=== PATIENT | male | born 1990 | race Caucasian/White ===

== ENCOUNTER 2020-12-13 13:06 | Emergency (ER) | payer OTHER, SELFPAY ==
--- NOTE | ~2020-12-13 | XR_ITS ---
EXAMINATION: XR chest 1V portable EXAM DATE: 12/13/2020 14:55 INDICATION: Cough, congestion x 5 days, hx of COPD, smoker. TECHNIQUE: Portable AP frontal chest x-ray was obtained. There is no prior study for comparison. FINDINGS: The lungs are clear. There are no pleural effusions. Cardiac silhouette is prominent but magnified on this AP technique. There is no pneumothorax suspected. The bones and soft tissues are unremarkable. IMPRESSION: No acute cardiopulmonary findings. Reviewed, dictated and finalized at location B.
[2020-12-13 13:14] VITALS: BP 136/102; PULSE 100; RESP 20; TEMP 36.4; O2SAT 97
--- NOTE | 2020-12-13 14:46 | ED.URI ---
HPI - URI/Sore Throat General Chief Complaint: Upper Respiratory Infection Stated Complaint: COUGH/COLD S/SX Time Seen by Provider: 12/13/20 14:35 Source: patient History of Present Illness HPI Narrative: Patient presents with cough, congestion mild shortness of breath. Ports he had symptoms for the past few days getting progressively worse. Instructed to be evaluated by his work as well as his friends. He denies productive cough denies chest pain denies fevers denies any lightheadedness nausea vomiting Related Data Allergies Allergy/AdvReac Type Severity Reaction Status Date / Time No Known Allergies Allergy Verified 12/13/20 13:16 Review of Systems Review of Systems: CONSTITUTIONAL: Denies fever, chills, or sweats. EYES: Denies visual changes, redness, or discharge. ENT: Denies rhinorrhea, congestion, sore throat, or otalgia. CARDIOVASCULAR: Denies chest pain, palpitations, or edema. RESPIRATORY: Reports shortness of breath and cough GASTROINTESTINAL: Denies abdominal pain, nausea, vomiting, or diarrhea. GENITOURINARY: Denies dysuria or hematuria. SKIN: Denies rash or itching. MUSCULOSKELETAL: Denies back pain, joint pain, or myalgia. NEUROLOGIC: Denies headache, numbness, dizziness, or weakness. PSYCHIATRIC: Denies anxiety or depression. All systems reviewed & are unremarkable except as noted in HPI and below PMFSH Social History Social History (Updated 12/13/20 @ 14:52 by Blaine Bradshaw MD) Smoking status: Current every day smoker Exam Narrative: GENERAL: Well-appearing, well-nourished, and in no acute distress. HEAD: Normocephalic, atraumatic. EYES: PERRLA and EOMI. ENT: Nares clear, no rhinorrhea or epistaxis. Mucous membranes moist. NECK: Supple. No masses. No JVD CHEST: Clear to auscultation. No respiratory distress. No wheezes rales or rhonchi HEART: Regular rate and rhythm. No murmur heard. Normal peripheral pulses. ABDOMEN: Soft, nontender, nondistended, normal active bowel sounds. EXTREMITIES: Normal range of motion. No edema. SKIN: Warm, dry, no rash. NEURO: No focal deficits. Alert and oriented x3. PSYCH: Normal mood and affect. Course Reevaluation(s) Reevaluation #1: Patient resting comfortably results reviewed with patient. Patient comfortable with outpatient plan. Date: 12/13/20 Time: 15:11 Vital Signs Vital signs: Vital Signs Temperature 36.4 C 12/13/20 13:14 Pulse Rate 100 12/13/20 13:14 Respiratory Rate 20 12/13/20 13:14 Blood Pressure 136/102 H 12/13/20 13:14 Pulse Oximetry 97 12/13/20 13:14 Temperature 36.4 C 12/13/20 13:14 Pulse Rate 97 12/13/20 15:26 Respiratory Rate 12 12/13/20 15:26 Blood Pressure 130/83 12/13/20 15:26 Pulse Oximetry 98 12/13/20 15:27 MDM - URI/Sore Throat MDM Narrative Medical decision making narrative: H&P as above, vss, pt looks clinically well, exam reassuring, imaging clinically unremarkable, additional labs/img considered, symptomatic relief available as needed, on reevaluation pt continues to looks clinically well. Suspect viral process possible bronchitis, dns pneumonia, severe sepsis, severe dehydration. plan to tx/monitor as op w/ pcm f/u findings/plan discussed with pt, pt agree/comfortable with plan, return precautions given Lab Data Labs: Lab Results 12/13/20 Range/Units 15:45 SARS-CoV-2 RNA (RT-PCR) Pending Imaging Data Radiologist's impression: Impressions Chest X-Ray 12/13/20 15:03 IMPRESSION: No acute cardiopulmonary findings. Discharge Plan Discharge Clinical Impression: Cough, Shortness of breath, Chest congestion Patient Disposition: Home, Self-Care Condition: Improved Instructions: Antibiotic Form, Acute Bronchitis (ED) Additional Instructions: Please return if your symptoms worsen or fail to improve. If you develop a fever, can not eat/drink anything or if you have any other concerns. Prescriptions: New albuterol sulfate 90 mcg/actua
[2020-12-13 15:26] VITALS: BP 130/83; PULSE 97; RESP 12; O2SAT 98
[2020-12-13 15:27] VITALS: O2SAT 98
[2020-12-14 17:03] LABS: SARS-CoV-2 RNA PCR Negative
== END 2020-12-13 15:48 | disposition home or self-care (01) ==
PROVIDERS: Emergency Provider Emergency Medicine; PCP Family Medicine
DX: R05.9 Cough, unspecified (principal); R06.02 Shortness of breath; R09.89 Other specified symptoms and signs involving the circulatory and respiratory systems; Z20.822 Contact with and (suspected) exposure to COVID-19; F17.200 Nicotine dependence, unspecified, uncomplicated
CPT/HCPCS: 71045; 99283; C9803; U0003; U0005

== ENCOUNTER 2022-07-30 14:03 | Emergency (ER) | payer OTHER, SELFPAY ==
--- NOTE | ~2022-07-30 | XR_ITS ---
EXAMINATION: XR ankle RT min 3V DATE: 07/30/2022 14:28 INDICATION: Right ankle injury and pain. TECHNIQUE: 4 views of right ankle were obtained. COMPARISON: None. FINDINGS: Bone alignment is normal. No fracture. There is mild osteoarthritis of talonavicular joint. There is an enthesophyte at plantar aspect of calcaneal tuberosity. Ankle soft tissue swelling is no samm. IMPRESSION: 1. No fracture. Reviewed, dictated and finalized at location A. IMPRESSION: 1. No fracture.
--- NOTE | ~2022-07-30 | XR_ITS ---
EXAMINATION: XR foot RT min 3V DATE: 07/30/2022 15:23 INDICATION: Right foot injury and pain. TECHNIQUE: 3 views of right foot were obtained. COMPARISON: None. FINDINGS: Bone alignment is normal. No fracture. There is mild osteoarthritis of first metatarsophala ngeal joint and talonavicular joint. There is an enthesophyte at plantar aspect of calcaneal tuberosi ty. IMPRESSION: 1. Mild polyarticular osteoarthritis. Reviewed, dictated and finalized at location A.
[2022-07-30 14:05] VITALS: BP 163/86; PULSE 91; RESP 20; TEMP 36.9; O2SAT 97
--- NOTE | 2022-07-30 15:14 | ED.GENADULT ---
HPI - General Adult General Chief complaint: Extremity Injury, Lower Stated complaint: right ankle injury Time Seen by Provider: 07/30/22 14:18 Source: patient Mode of arrival: wheelchair Limitations: no limitations History of Present Illness HPI narrative: This is a 32-year-old male who presents to the ED with chief complaint of a right ankle injury occurring 1 day prior to arrival. Patient states that he was playing ball with his kids in the backyard. He was backing up to catch a ball when his foot went into a hole. He feels like the ankle rolled when he did this. Reports immediate pain and problems with bearing weight. Denies any numbness or weakness. Related Data Allergies Allergy/AdvReac Type Severity Reaction Status Date / Time No Known Allergies Allergy Verified 07/30/22 14:04 Review of Systems Review of Systems: CONSTITUTIONAL: Denies fever, chills, or sweats. EYES: Denies visual changes, redness, or discharge. ENT: Denies rhinorrhea, congestion, sore throat, or otalgia. CARDIOVASCULAR: Denies chest pain, palpitations, or edema. RESPIRATORY: Denies cough or dyspnea. GASTROINTESTINAL: Denies abdominal pain, nausea, vomiting, or diarrhea. GENITOURINARY: Denies dysuria or hematuria. SKIN: Denies rash or itching. MUSCULOSKELETAL: See HPI NEUROLOGIC: Denies headache, numbness, dizziness, or weakness. PSYCHIATRIC: Denies anxiety or depression. [facility] Social History Social History (Updated 12/13/20 @ 14:52 by Blaine Bradshaw, ) Smoking status: Current every day smoker Exam Narrative: GENERAL: Well-appearing, well-nourished, and in no acute distress. Presents in wheelchair. HEAD: Normocephalic, atraumatic. EYES: PERRLA and EOMI. ENT: Nares clear, no rhinorrhea or epistaxis. Mucous membranes moist. Oropharynx without tonsillar hypertrophy exudate or other lesions. NECK: Supple. No adenopathy or masses. CHEST: No respiratory distress. Clear to auscultation. No wheezes rales or rhonchi HEART: Regular rate and rhythm. No murmur heard. Normal peripheral pulses. ABDOMEN: Soft, nontender, nondistended, normal active bowel sounds. MSK: Effusion to the right ankle. Mild effusion to the right foot. Marked tenderness to the lateral right ankle and minimal on the medial side of the ankle. There is some point tenderness to the lateral MTP joints on the right foot as well. No bruising or deformity. Neurovascularly intact distally. SKIN: Warm, dry, no rash. NEURO: Alert and oriented x3. No focal deficits. PSYCH: Normal mood and affect. Course Vital Signs Vital signs: Vital Signs Temperature 98.4 F 07/30/22 14:05 Pulse Rate 91 07/30/22 14:05 Respiratory Rate 20 07/30/22 14:05 Blood Pressure 163/86 H 07/30/22 14:05 Pulse Oximetry 97 07/30/22 14:05 Oxygen Delivery Room Air 07/30/22 14:05 Temperature 98.4 F 07/30/22 14:05 Pulse Rate 91 07/30/22 14:05 Respiratory Rate 20 07/30/22 14:05 Blood Pressure 163/86 H 07/30/22 14:05 Pulse Oximetry 97 07/30/22 14:05 Oxygen Delivery Room Air 07/30/22 14:05 Medical Decision Making MDM Narrative Medical decision making narrative: This is a 32-year-old male who presents to the ED with chief complaint of a right lower extremity injury occurring yesterday. Pain in the right ankle and right foot. Vitals are stable. Exam shows swelling to the right ankle and tenderness to the lateral right ankle and lateral right foot. X-rays are negative for any acute fractures or dislocation throughout the ankle or foot. Symptoms are consistent with ankle sprain. He will be given Ike wrap for compression and crutches. He is to remain weightbearing as tolerated. We discussed supportive measures for home. Return precautions given. Patient is understanding and agreeable with plan for discharge and follow-up with his PCP. Vital Signs Vital Signs: Vital Signs Temperature 98.4 F 07/30/22 14:05 Pulse Rate 91 07/30/22 14:0
== END 2022-07-30 15:53 | disposition home or self-care (01) ==
PROVIDERS: Emergency Provider Physician Assistant; PCP Family Medicine
DX: S99.911A Unspecified injury of right ankle, initial encounter (principal); F17.210 Nicotine dependence, cigarettes, uncomplicated; M19.071 Primary osteoarthritis, right ankle and foot; X50.9XXA Other and unspecified overexertion or strenuous movements or postures, initial encounter
CPT/HCPCS: 73610; 73630; 99283

== ENCOUNTER 2023-08-24 22:00 | Emergency (ER) | payer OTHER, MEDICAID, SELFPAY ==
[2023-08-24 22:04] VITALS: BP 152/86; PULSE 106; RESP 20; TEMP 36.6; O2SAT 96
--- NOTE | 2023-08-25 00:16 | PC.NURSE ---
no answer at triage
--- NOTE | 2023-08-25 01:01 | PC.NURSE ---
no answer at triage
== END 2023-08-25 01:22 | disposition left against medical advice (07) ==
LOC: ANHED 08-25 01:06
PROVIDERS: PCP Family Medicine
DX: K08.89 Other specified disorders of teeth and supporting structures (principal)
CPT/HCPCS: 99199